=== PATIENT | male | born 1945 | race Caucasian/White ===

== ENCOUNTER 2023-03-12 19:13 | Emergency (ER) | payer MEDICARE, MEDICAID ==
[~2023-03-12] VITALS: Ht 162.6 cm; Wt 70.5 kg
[~2023-03-12 19:13] MED LIST: LACT1CAP26 PO
[2023-03-12 20:19] VITALS: BP 118/70
== END 2023-03-12 22:51 | disposition left against medical advice (07) ==
LOC: ER 19:13
DX: R07.89 Other chest pain (principal); Z53.21 Procedure and treatment not carried out due to patient leaving prior to being seen by health care provider
CPT/HCPCS: 99281